=== PATIENT | female | born 1985 | race Caucasian/White ===

== ENCOUNTER 2018-08-19 18:41 | Observation (INO) ==
--- NOTE | 2018-08-19 19:39 | Emergency Department Note ---
[facility] [place] Clinical Impression: Pneumonia of both lower lobes Qualifiers: Pneumonia type: due to unspecified organism Qualified Code(s): J18.1 - Lobar pneumonia, unspecified organism Community acquired pneumonia Qualifiers: Laterality: unspecified laterality Qualified Code(s): J18.9 - Pneumonia, unspecified organism Disposition: Admitted As Inpatient Condition on Discharge: Fair Time of Disposition: 21:13 Medical Decision Making - Brock Inquiry Pt receiving controlled substance: No Vital Signs: 08/19/18 19:08 08/19/18 20:51 Temperature 102.6 F H 100.6 F H Temperature Source Oral Oral Pulse Rate [Left Radial] 121 H 98 H Respiratory Rate 26 H 24 Blood Pressure [Right Arm] 136/95 H 136/87 Blood Pressure Mean [Right Arm] 108 103 Blood Pressure Source [Right Arm] Automatic Cuff Blood Pressure Position [Right Arm] Sitting Supine 02 Sat by Pulse Oximetry 96 92 L Oxygen Delivery Method Room Air Room Air - Lab Data Lab results reviewed: Yes: I reviewed the patient's lab results. Lab Results 08/19/18 19:21: Influenza Type A Ag Negative, Influenza Type B Ag Negative, Strep Scn Rapid Clinic Negative 08/19/18 19:35: WBC 7.6, RBC 4.71, Hgb 13.8, Hct 42.3, MCV 89.7, MCH 29.3, MCHC 32.7, RDW 13.2, Plt Count 296, MPV 7.0 L, Neut % (Auto) 76.0, Lymph % (Auto) 16.0, [place] % (Auto) 5.1, Eos % (Auto) 2.2, Baso % (Auto) 0.6, Neut # (Auto) 5.8, Lymph # (Auto) 1.2, [place] # (Auto) 0.4, Eos # (Auto) 0.2, Baso # (Auto) 0.1 08/19/18 19:35: Sodium 136, Potassium 3.6, Chloride 101, Carbon Dioxide 24, Anion Gap 14.6, BUN 9, Creatinine 0.78, Estimated Creat Clear 114, Estimated GFR 85, Est GFR ( Amer) 102, Glucose 145 H, Calcium 8.8 08/19/18 19:35: Lactate 1.2 08/19/18 19:37: Urine Color Dark yellow, Urine Appearance Cloudy, Urine pH 5.5, Ur Specific [place] 1.030, Urine Protein 3+, Urine Glucose (UA) Negative, Urine Ketones 1+, Urine Blood 2+, Urine Nitrate Negative, Urine Bilirubin 1+ A, Urine Urobilinogen 1, Ur Leukocyte Esterase Negative 08/19/18 19:39: Tst Clinic Negative Result diagrams: 08/19/18 19:35 08/19/18 19:35 Orders (Tests/Meds): ED MEDICATIONS Discontinued Medications Generic Name Dose Route Start Last Admin Trade Name Dmitriy PRN Reason Stop Dose Admin Sodium Chloride 500 mls @ 999 mls/hr 08/19/18 19:45 08/19/18 19:47 Sod Chlor 0.9% 1000ml Bag IV 08/19/18 20:15 999 mls/hr .Q31M MARTA Administration Ibuprofen 800 mg 08/19/18 19:39 08/19/18 19:47 Motrin 400mg Tablet PO 08/19/18 19:40 800 mg ONCE ONE Administration ORDERS Category Date Time Status XR chest 2V Stat Exams 08/19/18 19:37 Taken Upper Respiratory Panel, PCR Stat Lab 08/19/18 20:05 Received Strep Screen Confirmation Stat Micro 08/19/18 19:21 Received - Radiology Data #1 Image(s): Chest Image Reviewed: Yes I reviewed the patient's radiology image w/the ED provider Preliminary Findings: Abnormal 2255: rvwd w/ OLIVIA Lopez MD. hesham lower lobe PNA - Physician Consults Physician Consulted: Dr. Lopez Time: 20:55 Reason -: Pt condition Comment/Response: Discussed HPI, exam, VS and rvwd CXR. Hesham lower lobe PNA. Needs admitted. Suggest calling louie for Dr. Weinstein. Additional Consult: louie Ball Time: 21:05 Reason -: Pt condition Comment/Response: Discussed HPI, exam, VS, CXR, consult with Dr. Lopez. Admit for observation. azithromycin 500mg IV and rocephin 1gram IV with CAP protocol. Dr. Lopez willing to place all admission orders. - Reevaluation(s) Time: 19:58 Reevaluation #1: pt ambulated to and from ER radiology for CXR. Just returned to [facility]. Appears SOA. SPO2 92% with HR 135. Immediately returns to 95% with HR 119 within 1-2 minutes of rest. 2108: Discussed results, xrays, consults with pt and sister. pt is upset and te arful but agreeable to admission. [facility] [place] - General Stated complaint: fever for 6 days; weak; chest congestion Time Seen by Provider: 08/19/18 19:20 Mode of Arrival: Ambulatory Source of Information: Patient Limitations: No Limitations Description of Symptoms (Recalled from Triage Doc. by RN): seen helena yesterday, swabbed for the flu, gever her promethazine cough syrup, went to [facility] saturday gave her cough meds, fever aches, chills, no appetite, diarrhea, lopez, sore throat, cough. Tylenol at 1730 HEENT Symptoms (Recalled from RN notes): Yes Resp Symptoms (Recalled from RN notes): No Skin Symptoms (Recalled from RN notes): No MS Symptoms (Recalled from RN notes): No Functional Status (Recalled from RN notes): wnl - History of Present Illness Provider Complaint: Here w/ sister due to persisting fever 102-103, aches, cough and now SOA. Started on , 5 days ago w/ fever, aches, chills, occasional cough. Was seen Saturday at clinic. No tests. Dx viral and rx bromfed. Continued to feel worse so was seen at Dr. Weinstein yesterday. Flu negative. Dx viral and bromfed replaced with promethazine DM. Tylenol and motrin help "s omewhat". Tylenol last at 5:30 and motrin around noon. SOA new today. Worse with exertion. No energy. Fatigue. toddler w/ cold 2 weeks ago. nonsmoker - Related Data Previous Rx's Medication Instructions Recorded Bromfed DM 2 mg-30 mg-10 mg/5 mL 10 ml PO Q4-6H PRN #240 ml NS 08/16/18 syrup Allergies Allergy/AdvReac Type Severity Reaction Status Date / Time No Known Allergies Allergy Verified 08/16/18 10:40 - Worker's Comp Is this a Worker's Comp case?: No [facility] History I have reviewed the patient's past medical history: Yes Medical History: Denies:: Asthma, Chronic Obstructive Pulmonary Disease (COPD), Diabetes Mellitus Type 2, Hypertension Other Medical History: Denies: Other (clotting disorders) Other Surgeries: Yes: No Previous Surgery - Social History Educational Level: Completed College Smoking Status: Never smoker Alcohol Intake: never Alcohol Intake Frequency:: holidays/special occasions only Substance Use Type: denies use - Psychiatric History Expresses thoughts of harming self/others: None Suicide Plan Description: No Plan ROS Obtained: Yes Systems reviewed as appropriate & no additional complaints - Constitutional Constitutional: Reports as per HPI, Reports daytime sleepiness, Reports poor appetite (trying to drink but feels she isn't drinking enough) - Eyes Eyes: Denies eye discharge, Denies itchy eyes - ENT Ears, Nose, Mouth, and Throat: Reports as per HPI, Denies otalgia, Denies nasal congestion, Denies nasal discharge, Denies post nasal drip, Denies sore throat - Cardiovascular Cardiovascular: Denies chest pain, Denies irregular heart rhythm, Denies leg edema, Reports rapid heart rate - Respiratory Respiratory: Yes as per HPI, No chest congestion, Yes non-productive cough, No pain on inspiration, No pain with cough, No wheezing - Gastrointestinal Gastrointestingal: Denies: abdominal pain, change in bowel habits, nausea, vomiting - Genitourinary Female Genitourinary: Reports as per HPI (currently menstrauting), Denies difficulty voiding, Denies dysuria, Denies flank pain, Denies urinary frequency, Denies urinary hesitancy, Denies urinary urgency, Reports other (urine dark w/ odor) - Musculoskeletal Musculoskeletal: Denies limited range of motion - Integumentary/Breasts Skin/Breast: Denies change in skin color, Denies rash - Neurologic Neurologic: Denies confusion, Denies dizziness, Reports headache(s) (intermittently the last 2-3 days) Physical Exam - General General appearance: alert, in no apparent distress (at rest, SOA noted with conversing), obese - Eye Eye exam: Present: normal appearance - ENT ENT exam: Present: normal oropharynx, mucous membranes dry, TM's normal bilaterally, normal external ear exam - Neck Neck exam: Absent: tenderness, lymphadenopathy - Chest Chest inspection: Present: symmetric chest wall rise - Respiratory Respiratory exam: Present: other (decreased hesham bases but otherwise clear, SOA i n conversation but immediately improves w/ rest). Absent: wheezes, accessory muscle use - Cardiovascular Cardiovascular exam: Present: normal rhythm, tachycardia, normal heart sounds - Abdominal Exam Abdominal exam: Present: soft, normal bowel sounds. Absent: distention, tenderness - Extremities Exam Extremities exam: Present: other (moving all extremities) - Back Exam Back exam: Absent: CVA tenderness (R), CVA tenderness (L) - Neurological Exam Neurological exam: Present: alert, oriented X3 - Psychiatric Psychiatric exam: Present: normal affect - Skin Skin exam: Present: warm, dry, intact, normal color. Absent: rash
[2018-08-19 19:53] LABS: Basophils # 0.1 K/mm3 (0-0.2); Basophils % 0.6 % (0.1-2.0); Eosinophils # 0.2 K/mm3 (0.0-0.4); Eosinophils % 2.2 % (0.1-12.0); Hematocrit 42.3 % (37.0-47.0); Hemoglobin 13.8 g/dL (12.2-16.2); Lymphocytes # 1.2 K/mm3 (0.7-4.5); Mean Corpuscular HGB Conc 32.7 g/dL (31.8-35.4); Mean Corpuscular Hemoglobin 29.3 pg (27.0-31.2); Mean Corpuscular Volume 89.7 fl (81-99); Monocytes # 0.4 K/mm3 (0.1-1.0); Monocytes % 5.1 % (1.7-9.3); Neutrophils # 5.8 K/mm3 (1.8-7.8); Platelet Count 296 K/mm3 (142-424); Red Blood Count 4.71 M/mm3 (4.20-5.40); Red Cell Distribution Width 13.2 % (11.5-17.5); White Blood Count 7.6 K/mm3 (4.8-10.8)
[2018-08-19 20:01] LABS: Anion Gap 14.6 mEq/L (5-15); Calcium 8.8 mg/dL (8.5-10.1); Potassium 3.6 mmoL/L (3.5-5.1)
[2018-08-19 20:19] LABS: Coronavirus 229E Not Detected (NotDetected); Coronavirus NL63 Not Detected (NotDetected); Coronavirus OC43 Not Detected (NotDetected); Coronovirus HKU1,PCR Not Detected (NotDetected)
[2018-08-20 06:41] LABS: Basophils % 0.4 % (0.1-2.0); Eosinophils % 0.1 % (0.1-12.0); Hematocrit 41.9 % (37.0-47.0); Hemoglobin 13.6 g/dL (12.2-16.2); Lymphocytes # 0.9 K/mm3 (0.7-4.5); Lymphocytes % 13.5 % (10-50); Mean Corpuscular HGB Conc 32.4 g/dL (31.8-35.4); Mean Corpuscular Hemoglobin 29.5 pg (27.0-31.2); Mean Platelet Volume 7.1 fl (7.4-10.4); Monocytes # 0.1 K/mm3 (0.1-1.0); Monocytes % 1.5 % (1.7-9.3); Neutrophils # 5.7 K/mm3 (1.8-7.8); Neutrophils % 84.5 % (37.0-80.0); Platelet Count 268 K/mm3 (142-424); Red Blood Count 4.61 M/mm3 (4.20-5.40); Red Cell Distribution Width 13.3 % (11.5-17.5); White Blood Count 6.7 K/mm3 (4.8-10.8)
[2018-08-20 06:51] LABS: Calcium 8.3 mg/dL (8.5-10.1)
--- NOTE | 2018-08-20 07:24 | History & Physical Report ---
*Admission Date: 08/19/18 *Chief complaint: Fever and cough *History of present illness: 33 old female who presented to the urgent treatment clinic yesterday with 5 days of illness that began with fever and body aches soon followed by cough that was primarily nonproductive. Patient was able to continue working despite feeling quite ill. Yesterday because of persistent cough and fever she presented to the urgent treatment clinic. Workup in the urgent treatment clinic revealed bilateral lower lobe pneumonia on chest x-ray. Patient was admitted for observation and IV antibiotics. She received Rocephin and azithromycin yesterday evening. This morning patient feels slightly better. Cough is more productive after breathing treatments. Sputum culture has been collected [facility] History I have reviewed the patient's past medical history: Yes Medical History: Denies:: Asthma, Cancer, Chronic Obstructive Pulmonary Disease (COPD), Diabetes Mellitus Type 1, Diabetes Mellitus Type 2, Hypertension, MRSA Other Medical History: Denies: Other (clotting disorders) Other Surgeries: Yes: No Previous Surgery Amputation: No Fractures: No - *Social History Educational Level: Completed College Smoking Status: Never smoker Alcohol Intake: never Alcohol Intake Frequency:: holidays/special occasions only Substance Use Type: denies use Occupational Status: employed Housing: house Household Members: spouse - Psychiatric History Expresses thoughts of harming self/others: None Suicide Plan Description: No Plan *Family Hx:: Coronary Artery Disease, Hypertension Review of Systems - Review of Systems Review of systems:: pertinent systems reviewed and negative unless documented below - Constitutional Denies body ache(s), Denies chills - ENT Denies dry mouth, Denies difficulty swallowing - *Cardiovascular Reports shortness of breath, Denies chest pain, Denies chest pain at rest - *Respiratory Reports change in phlegm color, Reports chest congestion, Reports cough, Reports shortness of breath - *Gastrointestinal Denies abdominal pain - *Neurologic Reports headache(s) (intermittently the last 2-3 days), Denies confusion, Denies dizziness Meds Home Medications Medication Instructions Recorded Confirmed Type Promethazine/Dextromethorphan 5 ml PO Q6HP PRN MDD 30ML/DAY 08/19/18 08/19/18 History [Promethazine-Dm Syrup] Allergies Allergy/AdvReac Type Severity Reaction Status Date / Time No Known Allergies Allergy Verified 08/16/18 10:40 Exam Vital signs and Labs for Last 24 Hours: Temp Pulse Resp BP Pulse Ox 98.4 F 87 18 124/67 90 L 08/20/18 04:00 08/20/18 06:17 08/20/18 04:00 08/20/18 04:00 08/20/18 06:17 Laboratory Results - last 24 hr 08/19/18 19:21: Influenza Type A Ag Negative, Influenza Type B Ag Negative, Strep Scn Rapid Clinic Negative 08/19/18 19:35: WBC 7.6, RBC 4.71, Hgb 13.8, Hct 42.3, MCV 89.7, MCH 29.3, MCHC 32.7, RDW 13.2, Plt Count 296, MPV 7.0 L, Neut % (Auto) 76.0, Lymph % (Auto) 16.0, [place] % (Auto) 5.1, Eos % (Auto) 2.2, Baso % (Auto) 0.6, Neut # (Auto) 5.8, Lymph # (Auto) 1.2, [place] # (Auto) 0.4, Eos # (Auto) 0.2, Baso # (Auto) 0.1 08/19/18 19:35: Sodium 136, Potassium 3.6, Chloride 101, Carbon Dioxide 24, Anion Gap 14.6, BUN 9, Creatinine 0.78, Estimated Creat Clear 114, Estimated GFR 85, Est GFR ( Amer) 102, Glucose 145 H, Calcium 8.8 08/19/18 19:35: Lactate 1.2 08/19/18 19:37: Urine Color Dark yellow, Urine Appearance Cloudy, Urine pH 5.5, Ur Specific [place] 1.030, Urine Protein 3+, Urine Glucose (UA) Negative, Urine Ketones 1+, Urine Blood 2+, Urine Nitrate Negative, Urine Bilirubin 1+ A, Urine Urobilinogen 1, Ur Leukocyte Esterase Negative 08/19/18 19:39: Tst Clinic Negative 08/19/18 20:05: Chlamy pneumoniae PCR Not detected, Adenovirus (PCR) Not detected, B. pertussis DNA (PCR) Not detected, Coronavirus OC43 (PCR) Not detected, Coronavirus HKU1 (PCR) Not detected, Coronavirus 229E (PCR) Not detected, Coronavirus NL63 (PCR) Not detected, Human Metapneumovir PCR Not detected, Influenza A (H1) PCR Not detected, Influ A (H1N1/09) PCR Not detected, Influenza A (H3) PCR Not detected, Influenza Type A (PCR) Not detected, Influenza Type B (PCR) Not detected, M. pneumoniae (PCR) Not detected, Parainfluenza 1 (PCR) Not detected, Parainfluenza 2 (PCR) Not detected, Parainfluenza 3 (PCR) Not detected, Parainfluenza 4 (PCR) Not detected, RSV (PCR) Not detected, Entero/Rhino (PCR) Not detected 08/20/18 06:25: WBC 6.7, RBC 4.61, Hgb 13.6, Hct 41.9, MCV 91.0, MCH 29.5, MCHC 32.4, RDW 13.3, Plt Count 268, MPV 7.1 L, Neut % (Auto) 84.5 H, Lymph % (Auto) 13.5, [place] % (Auto) 1.5 L, Eos % (Auto) 0.1, Baso % (Auto) 0.4, Neut # (Auto) 5.7, Lymph # (Auto) 0.9, [place] # (Auto) 0.1, Eos # (Auto) 0.0, Baso # (Auto) 0.0 08/20/18 06:25: Sodium 139, Potassium 4.0, Chloride 102, Carbon Dioxide 24, Anion Gap 17.0 H, BUN 8, Creatinine 0.77, Estimated Creat Clear 115, Estimated GFR 86, Est GFR ( Amer) 104, Glucose 156 H, Calcium 8.3 L I & O for Last 24 hours: Intake & Output 08/17/18 08/18/18 08/19/18 08/20/18 11:59 11:59 11:59 11:59 Intake Total 1065 / 1065 Output Total 1300 / 1300 Balance -235 / -235 Weight 302 lb 7 oz Narrative: Patient is awake and alert sitting up in bed. There is no sign of respiratory distress. ENT exam reveals normal pink membranes, moist oropharynx. Neck is without lymphadenopathy. Lungs have fair aeration with bibasilar rales right more prominent than left. Heart has a regular rate and rhythm. Abdomen is soft and nontender. Extremities are without edema Assessment and Plan (1) Community acquired pneumonia Current visit: Yes Status: Acute Qualifiers: Laterality: unspecified laterality Qualified Code(s): J18.9 - Pneumonia, unspecified organism Category: Medical Code(s): J18.9 - Pneumonia, unspecified organism (2) Pneumonia of both lower lobes Current visit: Yes Status: Acute Qualifiers: Pneumonia type: due to unspecified organism Qualified Code(s): J18.1 - Lobar pneumonia, unspecified organism Category: Medical Code(s): J18.9 - Pneumonia, unspecified organism - Assessment and plan all Dx Assessment and Plan for all problems:: Patient has been admitted on Rocephin and azithromycin. We will continue this. Order incentive spirometry. Continue aerosols. Encourage ambulation. Which her fever curve. I have explained to the patient that she is much sicker than she actually appears and emphasized the importance of rest for her to recover from her pneumonia
--- NOTE | 2018-08-20 08:02 | Pharmacy Consult Notes ---
[facility] Pharmacy VTE Monitoring - Patient Demographics Admission date: 08/19/18 Report Date: 08/20/18 Time: 08:01 Allergies/Adverse Reactions: Patient Allergies No Known Allergies Allergy (Verified 08/16/18 10:40) Height: 1.8 m Weight: 137.183 kg Patient Problems: Current Active Problems Pneumonia of both lower lobes (Acute) Community acquired pneumonia (Acute) - VTE Risk Labs: VTE Related Lab Results Hgb 13.6 g/dL (12.2-16.2) 08/20/18 06:25 Hct 41.9 % (37.0-47.0) 08/20/18 06:25 Plt Count 268 K/mm3 (142-424) 08/20/18 06:25 BUN 8 mg/dL (7-18) 08/20/18 06:25 Creatinine 0.77 mg/dL (0.55-1.02) 08/20/18 06:25 Estimated Creat Clear 115 mL/min (50-200) 08/20/18 06:25 Was VTE Risk Assessment Performed: Yes VTE Score: 1 VTE Risk Level: Very Low Risk Clinical Trial Participant: No - Prophylaxis VTE Prophylaxis Ordered?: Yes Types of VTE Prophylaxis: TEDS Knee High
--- NOTE | 2018-08-21 07:40 | Discharge Summary ---
General - General Admission date:: 08/19/18 Discharge date: 08/21/18 HPI HPI: 33 old female who presented to the urgent treatment clinic yesterday with 5 days of illness that began with fever and body aches soon followed by cough that was primarily nonproductive. Patient was able to continue working despite feeling quite ill. Yesterday because of persistent cough and fever she presented to the urgent treatment clinic. Workup in the urgent treatment clinic revealed bilateral lower lobe pneumonia on chest x-ray. Patient was admitted for observation and IV antibiotics. She received Rocephin and azithromycin yesterday evening. This morning patient feels slightly better. Cough is more productive after breathing treatments. Sputum culture has been collected Hospital Course Hospital Course: . She defervesced quickly and her last documented fever was in the emergency department. White count was never elevated. Lung exam had diminished breath sounds in the bases with rales on the right. On the sixth patient's lung exam had improved aeration of the bases with now audible rales on both the left and the right. Heart had a regular rate and rhythm. Patient continued to have cough with some chest congestion. Sputum culture was pending at the time of discharge. As patient was afebrile and maintaining appropriate room air sats she was discharged home and will follow-up in my office on August 25 Objective Vital signs: Temp Pulse Resp BP Pulse Ox 97.9 F 78 20 122/74 93 L 08/21/18 04:00 08/21/18 06:39 08/21/18 04:00 08/21/18 04:00 08/21/18 06:39 Results Labs on day of discharge: Preliminary micro results at discharge 08/19/18 23:36 Sputum Culture - Preliminary Sputum - Expectorated Sputum DS: Diagnosis - Discharge Diagnosis (1) Community acquired pneumonia Status: Acute (2) Pneumonia of both lower lobes Status: Acute Discharge Plan - Patient Discharge Instructions ACTIVITY: Continue current activity DIET: continue same diet - Follow up Plan Follow up with: Nicolas Weinstein MD [Primary Care Provider] - 08/25/18 9:00 am Disposition: Home, Self-Custodial Medications: Home Medications Medication Instructions Recorded Confirmed Type Promethazine/Dextromethorphan 5 ml PO Q6HP PRN MDD 30ML/DAY 08/19/18 08/19/18 History [Promethazine-Dm Syrup] Prescriptions/Medication Reconciliation: New Cefdinir [Omnicef 300mg Capsule] 300 mg PO BID #14 cap Azithromycin [Z-Rich 250mg Tab] 250 mg PO UD DOSE PK #6 tab Discontinued Bromfed DM 2 mg-30 mg-10 mg/5 mL syrup 10 ml PO Q4-6H PRN #240 ml NS PRN Reason: cold symptoms Promethazine/Dextromethorphan [Promethazine-Dm Syrup] 5 ml PO Q6HP PRN MDD 30ML/DAY PRN Reason: Cough
== END 2018-08-21 08:36 | disposition home or self-care (01) | DRG 195 ==
LOC: 2ND 18:41 → UTC 18:41 → INTOOBSV 21:36 → OBSVTOIN 21:36 → 2ND 21:37
PROVIDERS: ADMIT Internal Medicine Adolescent Medicine; ATTEND Family Medicine
CPT/HCPCS: 36415; 71020; 71046; 80048; 81003; 81025; 83605; 85025; 87070; 87205; 87486; 87581; 87633; 87798; 87804; 87880; 94640; 94760; 94761; 96360; 96365; 96366; 99203; G0378; J0456

== ENCOUNTER → 2018-08-25 09:36 | Outpatient (CLI) | payer BC, SELFPAY ==
--- NOTE | 2018-08-25 09:48 | XR_ITS ---
XR chest 2V HISTORY: Follow-up pneumonia ITS.REASON: PNEUMONIA ORDERING PHYSICIAN: Nicolas Weinstein MD PATIENT AGE: 33 years COMPARISON: 08/19/2018 FINDINGS: The cardiomediastinal silhouette and pulmonary vascularity are within normal limits. There is persistent but interval improvement in the right middle lobe pneumonia. Bilateral lower lobe pneumonia has improved. There remains some atelectatic changes in the lung bases posteriorly. Left basilar infiltrate has shown improvement with some minimal residual atelectasis. No acute bony anomalies. IMPRESSION: Improvement in bilateral pneumonia with some residual infiltrate in the right middle lobe and mild residual bibasilar atelectasis
== END ==
PROVIDERS: PCP Family Medicine; Visit Provider Family Medicine
DX: J18.1 Lobar pneumonia, unspecified organism (principal)
CPT/HCPCS: 71046

== ENCOUNTER 2022-04-15 11:50 | Emergency (ER) | payer BC, SELFPAY ==
[2022-04-15] VITALS (9 sets, daily range): BP systolic 108–155; BP diastolic 60–102; PULSE 64–87; RESP 16; TEMP 36.7–36.9; O2SAT 95–100; BMI 43.0
--- NOTE | 2022-04-15 11:56 | PC.NURSE ---
Addendum entered by Blanca Cooper 04/15/22 11:57: pt in wheel chair due to comfort with leg Original Note: Rn in room triaging pt
--- NOTE | 2022-04-15 12:06 | XR_ITS ---
PROCEDURE INFORMATION: Exam: XR Right Ankle Exam date and time: 04/15/2022 12:26 PM Age: 37 years old Clinical indication: Pain; Ankle; Right; Additional info: Fall, R ankle/distal tib fib pain TECHNIQUE: Imaging protocol: Radiologic exam of the Right ankle. Views: 3 or more views. COMPARISON: No relevant prior studies available. FINDINGS: Bones/joints: Spiral fracture lateral malleolus. No evidence of significant displacement. Soft tissues: Associated soft tissue swelling. IMPRESSION: 1. Spiral fracture lateral malleolus. 2. Associated soft tissue swelling.
--- NOTE | 2022-04-15 12:06 | XR_ITS ---
PROCEDURE INFORMATION: Exam: XR Right Tibia and Fibula Exam date and time: 04/15/2022 12:26 PM Age: 37 years old Clinical indication: Pain; Ankle; Right; Additional info: Fall, R ankle/distal tib fib pain TECHNIQUE: Imaging protocol: Radiologic exam of the Right tibia and fibula. Views: 2 views. COMPARISON: No relevant prior studies available. FINDINGS: Bones/joints: Previously demonstrated fracture of the lateral malleolus partially visualized. No additional osseous abnormalities demonstrated. Soft tissues: Normal. IMPRESSION: 1. Incomplete visualization of lateral malleolar fracture. 2. No additional fractures demonstrated.
--- NOTE | 2022-04-15 12:06 | XR_ITS ---
PROCEDURE INFORMATION: Exam: XR Right Foot Exam date and time: 04/15/2022 12:26 PM Age: 37 years old Clinical indication: Pain; Ankle; Right; Additional info: Fall, R ankle/distal tib fib pain TECHNIQUE: Imaging protocol: Radiologic exam of the Right foot. Views: 1 or 2 views. COMPARISON: No relevant prior studies available. FINDINGS: Bones/joints: Normal. Soft tissues: Normal. IMPRESSION: No acute findings.
--- NOTE | 2022-04-15 12:08 | HMH.EDGENADL ---
ED Disposition Clinical Impression: Closed right fibular fracture Qualifiers: Encounter type: initial encounter Fibula location: lateral malleolus Fracture alignment: displaced Qualified Code(s): S82.61XA - Displaced fracture of lateral malleolus of right fibula, initial encounter for closed fracture Disposition: Home, Self-Care Condition on Discharge: Good Instructions: Ankle Fracture Additional Instructions: Tylenol and ibuprofen for pain control, oxycodone for breakthrough pain. Follow-up with orthopedics for further management of right ankle fracture, they will call you to schedule an appointment. Remain nonweightbearing on right lower extremity until orthopedic follow-up and further instruction Prescriptions: Oxycodone HCl [Oxycodone 5mg tab (IR)] 5 mg PO Q6 PRN #10 tab PRN Reason: Severe Pain Transmission Status: Received by [id number] Referrals: Gaetano Parikh MD [Primary Care Provider] - Mando Connor JR, MD [Physician] - - Critical Care Critical Care Time: No Attestation: On , the high probability of a clinically significant, sudden or life threatening deterioration of the following system(s) required my full and direct attention, intervention and personal management. The time I documented below is in addition to time spent performing reported procedures but includes the following listed in this critical care notation. Medical Decision Making - Brock Inquiry Pt receiving controlled substance: Yes (oxycodone 5mg x10 tabs) Brock was queried for this patient: Yes Risks and benefits of using a controlled substance: were discussed with pt by me Vital Signs: 04/15/22 11:51 04/15/22 12:01 04/15/22 13:35 Temperature 98.4 F Temperature Source Oral Pulse Rate 64 79 Pulse Rate [Left Radial] 76 Respiratory Rate 16 Blood Pressure 108/60 L 147/85 H Blood Pressure [Left Arm] 108/60 L Blood Pressure Mean 69 104 Blood Pressure Mean [Left Arm] 76 Blood Pressure Source [Left Arm] Automatic Cuff Blood Pressure Position [Left Arm] Sitting 02 Sat by Pulse Oximetry 98 100 99 Oxygen Delivery Method Room Air 04/15/22 13:46 04/15/22 13:51 04/15/22 14:01 Temperature Temperature Source Pulse Rate 87 71 76 Pulse Rate [Left Radial] Respiratory Rate Blood Pressure 155/98 H 147/102 H 131/86 Blood Pressure [Left Arm] Blood Pressure Mean 117 117 105 Blood Pressure Mean [Left Arm] Blood Pressure Source [Left Arm] Blood Pressure Position [Left Arm] 02 Sat by Pulse Oximetry 100 100 100 Oxygen Delivery Method 04/15/22 14:05 04/15/22 14:21 Temperature Temperature Source Pulse Rate 75 75 Pulse Rate [Left Radial] Respiratory Rate Blood Pressure 142/78 H 140/85 Blood Pressure [Left Arm] Blood Pressure Mean 107 101 Blood Pressure Mean [Left Arm] Blood Pressure Source [Left Arm] Blood Pressure Position [Left Arm] 02 Sat by Pulse Oximetry 95 95 Oxygen Delivery Method Orders (Tests/Meds): ED MEDICATIONS Discontinued Medications Generic Name Dose Route Start Last Admin Trade Name Freq PRN Reason Stop Dose Admin Acetaminophen 500 mg 04/15/22 12:06 04/15/22 12:27 Acetaminophen 500mg Tab PO 04/15/22 12:07 500 mg ONCE ONE Administration Hydrocodone Bitart/Acetaminophen 1 tab 04/15/22 12:06 04/15/22 12:28 Hydrocodone/Apap 5/325 Mg Tablet PO 04/15/22 12:07 1 tab ONCE ONE Administration Ibuprofen 600 mg 04/15/22 12:06 04/15/22 12:28 Ibuprofen 600 Mg Tablet PO 04/15/22 12:07 600 mg ONCE ONE Administration Ketamine HCl 30 mg 04/15/22 13:11 04/15/22 13:30 Ketamine 500mg/10ml Vial IV 04/15/22 13:12 30 mg ONCE ONE Administration Ondansetron HCl 4 mg 04/15/22 13:21 04/15/22 13:30 Ondansetron 4mg/2ml Vial IV 04/15/22 13:22 4 mg ONCE ONE Administration Oxycodone HCl 5 mg 04/15/22 14:33 Oxycodone 5mg Immediate Release Tablet PO 04/15/22 14:34 ONCE ONE - Radiology Vincent
--- NOTE | 2022-04-15 12:41 | PC.NURSE ---
ER MD at to splint patient; she is sitting on ER stretcher. Spouse at BS
--- NOTE | 2022-04-15 13:24 | PC.NURSE ---
pharmacy notified to verify ketamine dosage
--- NOTE | 2022-04-15 13:26 | PC.NURSE ---
DOSAGE VERIFIED WITH KELLY CORNELL, PHARMACIST
--- NOTE | 2022-04-15 14:00 | PC.NURSE ---
ER MD applied plaster splint, vitals taken throughout procedure, pt tolerated okay
--- NOTE | 2022-04-15 14:10 | PC.NURSE ---
Vitals taken prior to Ketamine administration 1340- BP 147/85; HR 79; O2 98% During administration- BP 155/98; HR 78; O2 100% 1352- BP 147/102; HR 85; O2 100% Procedure completed/Splint applied 1357- BP 144/90; HR 77; O2 99%
--- NOTE | 2022-04-15 14:20 | PC.NURSE ---
Pt resting in bed with at bedside.
--- NOTE | 2022-04-15 14:28 | PC.NURSE ---
Pt A&O X4, stating that she feels much better and is ready to go home. C/O pain starting to return in ankle. notified.
== END 2022-04-15 14:57 | disposition home or self-care (01) ==
PROVIDERS: Emergency Provider Emergency Medicine; PCP Internal Medicine Adolescent Medicine
DX: S82.61XA Displaced fracture of lateral malleolus of right fibula, initial encounter for closed fracture (principal); I10 Essential (primary) hypertension; W19.XXXA Unspecified fall, initial encounter
CPT/HCPCS: 29405; 73590; 73610; 73620; 96374; 96375; 99284; J2405

== ENCOUNTER 2022-08-28 15:30 | Outpatient (RCR) | payer BC, SELFPAY | END 2022-08-28 16:47 | disposition home or self-care (01) | LOC: PT 15:30 | PROVIDERS: PCP Internal Medicine Adolescent Medicine; Visit Provider Orthopaedic Surgery | DX: S82.401D Unspecified fracture of shaft of right fibula, subsequent encounter for closed fracture with routine healing (principal) | CPT/HCPCS: 97010; 97014; 97016; 97110; 97112; 97140; 97163; 97164; 97530; G0283 ==

== ENCOUNTER → 2022-09-02 07:59 | Outpatient (CLI) | payer BC, SELFPAY ==
[2022-09-02 08:20] VITALS: BP 119/77; PULSE 65; RESP 16; TEMP 37.1; O2SAT 95; BMI 45.1
[2022-09-02 08:25] LABS: UTC Strep Screen (Rapid) Negative (Negative)
--- NOTE | 2022-09-02 09:55 | PC.NURSE ---
provider was not available at time pt was to be seen. strep test done in [facility]. offered pt to be seen in ER but pt stated she would go home.
== END ==
PROVIDERS: Nurse Practitioner Family; PCP Internal Medicine Adolescent Medicine
DX: J02.9 Acute pharyngitis, unspecified (principal)
CPT/HCPCS: 87880

== ENCOUNTER → 2022-11-09 09:02 | Outpatient (CLI) | payer BC, SELFPAY | PROVIDERS: PCP Student in an Organized Health Care Education/Training Program; Visit Provider Student in an Organized Health Care Education/Training Program | DX: J02.9 Acute pharyngitis, unspecified (principal) | CPT/HCPCS: 87070; C9803; U0003; U0005 ==

== ENCOUNTER → 2023-06-08 08:01 | Outpatient (CLI) | payer BC, SELFPAY ==
[2023-06-08 08:43] LABS: Basophils # 0.1 K/mm3 (0-0.2); Basophils % 0.8 % (0.1-2.0); Eosinophils # 0.3 K/mm3 (0.0-0.4); Eosinophils % 4.1 % (0.1-12.0); Hematocrit 47.5 % (37.0-47.0); Hemoglobin 15.2 g/dL (12.2-16.2); Lymphocytes # 1.9 K/mm3 (0.7-4.5); Lymphocytes % 27.7 % (10-50); Mean Corpuscular HGB Conc 32.1 g/dL (31.8-35.4); Mean Corpuscular Hemoglobin 30.2 pg (27.0-31.2); Mean Platelet Volume 8.2 fl (7.4-10.4); Monocytes # 0.3 K/mm3 (0.1-1.0); Monocytes % 4.6 % (1.7-9.3); Neutrophils # 4.4 K/mm3 (1.8-7.8); Neutrophils % 62.8 % (37.0-80.0); Platelet Count 287 K/mm3 (142-424); Red Blood Count 5.05 M/mm3 (4.20-5.40); Red Cell Distribution Width 13.4 % (11.5-17.5)
[2023-06-08 08:56] LABS: Hemoglobin A1C 5.5 % (4.0-6.0)
[2023-06-08 09:07] LABS: Chloride 106 mmol/L (98-107); Potassium 4.5 mmoL/L (3.5-5.1); Sodium 140 mmol/L (136-145)
[2023-06-08 09:10] LABS: Alanine Aminotransferase 19 U/L (12-78); Albumin/Globulin Ratio 1.4 (1.1-1.8); Alkaline Phosphatase 73 U/L (38-126); Anion Gap 12.5 mEq/L (5-15); Aspartate Amino Transferase 28 U/L (14-36); Bilirubin,Total 0.3 mg/dl (0.2-1.3); Blood Urea Nitrogen 13 mg/dl (7-17); Carbon Dioxide 26 mmol/L (22.0-30.0); Cholesterol 227 mg/dl (140-200); Estimated Glomerular Filt Rate 80 ml/min (>60); GFR (African American) 97 ML/MIN (>60); Globulin 2.8 g/dL (1.3-3.2); Total Protein,Serum 6.8 g/dl (6.3-8.2); Triglycerides 205 mg/dl (30-150); VLDL Cholesterol 41 mg/dL (0-40)
[2023-06-08 09:11] LABS: Calcium 8.6 mg/dl (8.4-10.2); Chol/HDL Ratio 5.2 (1-3.5); Glucose 108 mg/dl (74-100); HDL Cholesterol 44 mg/dl (40-60)
[2023-06-08 09:22] LABS: Direct LDL Cholesterol 126.37 mg/dL (100-129)
[2023-06-08 09:42] LABS: Thyroid Stimulating Hormone 1.66 uIU/mL (0.465-4.68)
[2023-06-08 10:01] LABS: Vitamin B12 462 pg/mL (239-931)
== END ==
PROVIDERS: PCP Nurse Practitioner Family; Visit Provider Nurse Practitioner Family
DX: Z00.00 Encounter for general adult medical examination without abnormal findings (principal); I10 Essential (primary) hypertension; R53.83 Other fatigue; E66.9 Obesity, unspecified; Z68.43 Body mass index [BMI] 50.0-59.9, adult
CPT/HCPCS: 36415; 80053; 80061; 82607; 83036; 84443; 85025

== ENCOUNTER 2023-10-06 08:08 | Emergency (ER) | payer BC, SELFPAY ==
[2023-10-06 08:15] VITALS: BP 121/72; PULSE 78; RESP 20; TEMP 37; O2SAT 95; BMI 47.9
--- NOTE | 2023-10-06 08:39 | ED_ITS ---
Discharge Plan Disposition Patient Disposition: Home, Self-Care Condition: Good Prescriptions Prescriptions: New azithromycin [Zithromax Z-Rich] 250 mg tablet See Rx Instructions .ROUTE .COMPLEX 5 Days Qty: 6 0RF Rx Instructions: For 250 mg dose pack: take 500 mg today (day 1), then 250 mg for 4 days (days 2-5) No Action lisinopril 5 mg tablet 5 mg PO DAILY levonorgestrel-ethinyl estrad [Vienva] 0.1-20 mg-mcg tablet 1 tab PO DAILY Patient Comments: TAKE 1 TABLET BY MOUTH DAILY Referrals Follow up/Referrals: Chana Yanez PA [Primary Care Provider] - See instructions Activity Restrictions/Add. Instructions Additional Instructions/Restrictions: Over the counter Coriciden HBP may help with sinus congestion Take medication as prescribed *Monitor Temp, Over the counter Motrin or Tylenol as directed/as needed Tylenol every 4 hours and Motrin every 6 hours (as long as your family doctor has told you that you can take it) for fever or pain. and straight to ER if unable to lower temp less than 101.0 after medication given *Warm salt water gargles may help to soothe the throat *Throat Lozenges? *Warm fluids like tea with honey may help to soothe the throat? *Sleep elevated *Humidifier/Vaporizer Follow up IMMEDIATELY for new or worsening symptoms or no Noticeable improvement over the next 48-72 hours. 911 for difficulty breathing or swallowing Clinical Impressions Clinical Impression: Pharyngitis Qualifiers: Pharyngitis/tonsillitis etiology: unspecified etiology Qualified Code(s): J02.9 - Acute pharyngitis, unspecified Instructions Patient Instructions: Sore Throat, DI for Nasal Congestion Discharge ED Provider: Abby Davenport [facility] General Stated complaint: sore throat, congestion Mode of Arrival: Ambulatory Source of Information: Patient Limitations: No Limitations Time Seen by Provider: 10/06/23 08:39 Description of Symptoms (Recalled from Triage Doc. by RN): PATIENT C/O SORE THROAT AND SINUS DRAINAGE SINCE SATURDAY HEENT Symptoms (Recalled from RN notes): Yes Resp Symptoms (Recalled from RN notes): No Skin Symptoms (Recalled from RN notes): No MS Symptoms (Recalled from RN notes): No Functional Status (Recalled from RN notes): WNL History of Present Illness Provider Complaint: Patient states that she started feeling bad on Saturday with s ore throat and sinus congestion and pressure States that it has continued to get worse States that this morning she was feeling worse so she came in to get checked Related Data Home Medications Medication Instructions Recorded Confirmed lisinopril 5 mg tablet 5 mg PO DAILY 11/09/22 10/06/23 levonorgestrel-ethinyl estradiol 1 tab PO DAILY 10/06/23 10/06/23 0.1 mg-20 mcg tablet (Vienva) Previous Rx's Medication Instructions Recorded azithromycin 250 mg tablet See Rx Instructions PO .COMPLEX 5 10/06/23 (Zithromax Z-Rich) days #6 tabs Allergies Allergy/AdvReac Type Severity Reaction Status Date / Time No Known Allergies Allergy Verified 11/09/22 09:33 Worker's Comp Is this a Worker's Comp case?: No [facility] Disclaimer: The information contained in this section may have been updated after the patient was seen, as this information can be updated by other users. Social History Smoking Status: Never smoker second hand exposure: No alcohol intake: never substance use type: denies use current occupational status: employed Travel in the last 8 weeks: None household members: spouse housing: house current occupation: TEACHER current occupational exposures/hazards: No ROS Obtained: Yes All systems reviewed & no additional complaints except as documented and Yes Systems reviewed as appropriate & no additional complaints except as documented Constitutional Constitutional: Reports system reviewed and no additional complaints, except as documented and Reports as per HPI ENT Ears, Nose, Mouth, and Throat: Reports system reviewed and no additional complaints, except as documented, Reports as per HPI, Reports sinus pain, Reports sinus pressure and Reports sore throat Cardiovascular Cardiovascular: Reports system reviewed and no additional complaints, except as documented and Reports as per HPI Respiratory Respiratory: Reports system reviewed and no additional complaints, except as documented and Reports as per HPI Gastrointestinal Gastrointestingal: Reports system reviewed and no additional complaints, except as documented and as per HPI Physical Exam General General appearance: alert and in no apparent distress ENT ENT exam: Present mucous membranes moist Expanded ENT Exam Nose exam: Present sinus tenderness Throat exam: Present tonsillar erythema Respiratory Respiratory exam: Present normal lung sounds bilaterally; Absent respiratory distress or wheezes Cardiovascular Cardiovascular exam: Present regular rate, normal rhythm and normal heart sounds Neurological Exam Neurological exam: Present alert, oriented X3 and normal gait Medical Decision Making Brock Inquiry Pt receiving controlled substance: No Brock was queried for this patient: No Vital Signs: 10/06/23 08:15 Temperature 98.6 F Temperature Source Oral Pulse Rate [Right Brachial] 78 Respiratory Rate 20 Blood Pressure [Right Arm] 121/72 Blood Pressure Mean [Right Arm] 88 Blood Pressure Source [Right Arm] Automatic Cuff Blood Pressure Position [Right Arm] Sitting 02 Sat by Pulse Oximetry 95 Oxygen Delivery Method Room Air Lab Data Lab results reviewed: Yes I reviewed the patient's lab results.
[2023-10-06 08:56] LABS: UTC Strep Screen (Rapid) Negative (Negative)
[2023-10-06 09:02] VITALS: BP 121/72; PULSE 78; RESP 20; TEMP 37; O2SAT 95
== END 2023-10-06 09:04 | disposition home or self-care (01) ==
PROVIDERS: Emergency Provider Nurse Practitioner; PCP Physician Assistant
DX: J02.9 Acute pharyngitis, unspecified (principal); R09.81 Nasal congestion
CPT/HCPCS: 87880; 99212; 99214; G0463

== ENCOUNTER 2023-11-01 19:56 | Outpatient (CLI) | payer BC, SELFPAY | END 2023-11-01 23:59 | LOC: LAB.DROPOF 19:57 | PROVIDERS: PCP Student in an Organized Health Care Education/Training Program; Visit Provider Student in an Organized Health Care Education/Training Program | DX: J02.9 Acute pharyngitis, unspecified (principal) | CPT/HCPCS: 87070 ==

== ENCOUNTER 2024-12-01 15:14 | Outpatient (CLI) | payer BC, SELFPAY ==
--- NOTE | 2024-12-01 15:19 | MM_ITS ---
PROCEDURE INFORMATION: Exam: MG Bilateral Screening 3D Mammography Exam date and time: 12/01/2024 3:27 PM Age: 39 years old Clinical indication: Screening examination TECHNIQUE: Imaging protocol: Bilateral Screening tomosynthesis and 2D mammography including computer-aided detection (CAD) when performed. COMPARISON: No relevant prior studies available. FINDINGS: MAMMOGRAPHY: Breast composition: There are scattered areas of fibroglandular density. Mass: None. Architectural distortion: None. Calcifications: No suspicious calcifications. Asymmetric density: None. Skin thickening: None. Axillary adenopathy: None. IMPRESSION: No mammographic evidence of malignancy. Annual screening is recommended unless otherwise clinically indicated. ASSESSMENT: BI-RADS Category 1: Negative.
== END 2024-12-01 23:59 | disposition home or self-care (01) ==
LOC: RAD 15:16
PROVIDERS: PCP Nurse Practitioner Family; Visit Provider Nurse Practitioner Family
DX: Z12.31 Encounter for screening mammogram for malignant neoplasm of breast (principal)
CPT/HCPCS: 77063; 77067